=== PATIENT | male | born 2000 | race Caucasian/White ===

== ENCOUNTER 2020-11-17 05:12 | Emergency (ER) | payer OTHER ==
[~2020-11-17] VITALS: Ht 188 cm; Wt 70.3 kg
== END 2020-11-17 08:05 | disposition home or self-care (01) ==
LOC: ER 05:12
DX: R51.9 Headache, unspecified (principal); F17.200 Nicotine dependence, unspecified, uncomplicated
CPT/HCPCS: 99282